=== PATIENT | female | born 1995 | race Caucasian/White ===

== ENCOUNTER 2019-01-20 21:13 | Emergency (ER) | payer OTHER ==
[~2019-01-20] VITALS: Ht 160 cm; Wt 64.6 kg
[2019-01-20 21:17] VITALS: BP 112/69
--- NOTE | 2019-01-20 21:27 | NUR ---
PT AMBULATED TO [facility] AND THEN BACK TO [facility]
--- NOTE | 2019-01-20 21:34 | NUR ---
PT AMBULATED TO ED BED 11
--- NOTE | 2019-01-20 21:37 | NUR ---
PT BIB SELF C/O COUGH, CONGESTION AND BODYAHCES. PT STATES COUGHING SINCE TODAY, W/ YELLOW GREENISH MUCOUS, CONGESTION TO EARS AND NOSE, +BODYACHES. PT STATES 0/10 PAIN AT THIS TIME. PT STATES SHE WENT TO URGENT CARE 2 DAYS AGO, AND WAS PROVIDED W/ Z-PACK, HAS 2 DAYS LEFT, W/O RELIEF. --LUNG SOUNDS CLEAR BL. PT ACTING APPROPRIATLY. PT IN BED; BED IN LOWER LOCKED POSITION. PENDING ER MD HIGUERA. WILL CONTINUE TO MONITOR. PMH: DENIES RX: Z-PACK
[2019-01-20] MEDS ORDERED: ALBUTEROL SULFATE/IPRATROPIU 3 ML SOL IH ONE (21:40)
--- NOTE | 2019-01-20 21:48 | NUR ---
CALL TO RESPIRATORY, PT HAS ORDERS PLACED FOR BREATHING TREATMENT, PT IS IN BED 11.
--- NOTE | 2019-01-20 21:49 | NUR ---
X-RAY AT BEDSIDE.
--- NOTE | 2019-01-20 21:56 | NUR ---
RESPIRATORY AT BEDSIDE FOR BREATHING TX.
--- NOTE | 2019-01-20 21:58 | NUR ---
DR. WOO AT BEDSIDE FOR EVALUATION.
--- NOTE | 2019-01-20 22:40 | NUR ---
FLU SWAB COLLECTED AND SENT W/ RAY, TECH.
[2019-01-20] MEDS ORDERED: predniSONE 20 MG TAB PO ONE (23:45)
[2019-01-21 00:02] VITALS: BP 106/71
--- NOTE | 2019-01-21 00:03 | NUR ---
Patient discharged with v/s stable. Patient states she feels good to go home, patient acting appropriatly, states 0/10 pain at this time. Written and verbal after care instructions given and explained. Patient alert, oriented and verbalized understanding of instructions. Ambulatory with steady gait. All questions addressed prior to discharge. ID band removed. Patient advised to follow up with PMD. Rx of Albuterol, and Prednisone given. Patient educated on indication of medication including possible reaction and side effects. Opportunity to ask questions provided and answered.
== END 2019-01-21 00:03 | disposition home or self-care (01) ==
LOC: MED 21:13
DX: J98.01 Acute bronchospasm (principal)
CPT/HCPCS: 71045; 81002; 81025; 87804; 94640; 94760; 99284; J7512; J7620; Q0092